=== PATIENT | female | born 1960 | race Caucasian/White ===

== ENCOUNTER 2023-10-05 18:20 | Emergency (ER) | payer OTHER, SELFPAY ==
[2023-10-05] VITALS (16 sets, daily range): BP systolic 172–250; BP diastolic 98–156; PULSE 72–128; TEMP 36.9; O2SAT 96; BMI 36.6
--- NOTE | 2023-10-05 18:44 | CT_ITS ---
The [address] [address] Patient Name: YARY PACEONER MRN: [id number] date: 1960 Sex: F Assigned Patient Location: ER Current Patient Location: ER Accession/Order Number: [id number] Exam Date: 10/05/2023 19:38 Report Date: 10/05/2023 19:59 At the request of: COOPER MUNROE Procedure: CT abdomen pelvis wo con EXAM: CT scan of the abdomen and pelvis without contrast. Dose reduction technique used: Automated exposure control and/or adjustment of the mA and/or kV according to patient size and/or use of iterative reconstruction technique. 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 Bilateral parapelvic renal cysts. Colonic diverticulosis. Mixed lucent and sclerotic circumscribed lesion in the right femoral head is likely benign. No renal, ureteral or bladder calculi. No hydronephrosis. Normal appendix. No free fluid in the abdomen or pelvis. No free intraperitoneal air. No dilated or thickened loops of small bowel or colon. Liver, pancreas, spleen, bilateral kidneys, and bilateral adrenal glands are otherwise unremarkable within the limitations of noncontrast CT. No lymphadenopathy in the abdomen or pelvis. Remainder unremarkable. CT/CT abdomen pelvis wo con IMPRESSION: No acute abnormalities in the abdomen or pelvis. Electronically authenticated by: MARIELENA FORD Date: 10/05/2023 19:59
--- NOTE | 2023-10-05 18:46 | ECG_ITS ---
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
--- NOTE | 2023-10-05 18:51 | ED_ITS ---
HPI HPI - General Adult General Chief complaint: GI Bleed Stated complaint: RECTAL BLEEDING Time Seen by Provider: 10/05/23 18:40 History of Present Illness HPI narrative: Is a 63-year-old female who presents to the emergency department for rectal bleeding that she noticed just prior to arrival. She states she and her went to dinner, she was able to eat and drink with no difficulty and she has no abdominal pain, fevers, chills, nausea, vomiting or recent illness. She states she had a bowel movement and she states that it was runny like water and she noted red blood in her stool. She denies the symptoms previously. She has never had a colonoscopy. She states she has been taking ibuprofen regularly for tooth pain. She is noted to be hypertensive and tachycardic at initial interview. She states she did have a history of high blood pressure in the past but it improved so she stopped taking her blood pressure medication and does not regularly see a doctor. Related Data Previous Rx's ?Medication ?Instructions ?Recorded lisinopril 10 mg tablet 10 mg PO DAILY #20 tabs 10/05/23 Allergies Allergy/AdvReac Type Severity Reaction Status Date / Time No Known Drug Allergies Allergy Verified 10/05/23 18:26 Opioid HPI Opioid Management Most Recent Opioid Data: No Data to Display Review of Systems ROS Constitutional Denies: fever or chills Ears, nose, mouth, and throat Denies: throat pain or nasal congestion Respiratory Denies: shortness of breath Gastrointestinal Reports: blood in stool; Denies: abdominal pain, nausea or vomiting Musculoskeletal Denies: back pain Integumentary/Breast Denies: rash Hematologic/Lymphatic Denies: easy bruising or easy bleeding Exam Narrative Exam Narrative: Gen.: Awake, alert, in no distress Head: Normocephalic, atraumatic ENT: Moist mucous membranes Respiratory: No respiratory distress, lungs clear bilaterally Cardio: Tachycardia Gastrointestinal: Abdomen is soft, nondistended and nontender to palpation Rectal: Rectal exam performed with Alyssa Lee RN at bedside throughout the duration of the exam. 2 small external hemorrhoids noted with no thrombosis or active bleeding Extremities: Moves extremities equally Psych: Normal mood and affect Neuro: No focal neuro deficit Skin: Warm, dry, intact Constitutional Vital Signs, click to edit/add: Last Vital Signs Temp 98.4 F 10/05/23 18:26 Pulse 76 10/05/23 20:30 Resp 16 10/05/23 20:30 BP 172/98 H 10/05/23 20:23 Pulse Ox 96 10/05/23 19:13 O2 Del Method Room Air 10/05/23 19:12 Course Vital Signs Vital signs: Vital Signs Temperature 98.4 F 10/05/23 18:26 Pulse Rate 128 H 10/05/23 18:26 Respiratory Rate 20 10/05/23 18:26 Blood Pressure 240/120 H 10/05/23 18:26 Pulse Oximetry 96 10/05/23 18:26 Temperature 98.4 F 10/05/23 18:26 Pulse Rate 76 10/05/23 20:30 Respiratory Rate 16 10/05/23 20:30 Blood Pressure 172/98 H 10/05/23 20:23 Pulse Oximetry 96 10/05/23 19:13 Oxygen Delivery Method Room Air 10/05/23 19:12 Medical Decision Making MDM Narrative Medical decision making narrative: Patient was treated with IV fluids, labetalol and Vasotec with improvement of blood pressure to 182/124. Lab studies are otherwise stable, Hemoccult is positive but the patient has no active bleeding per rectum in the ER and CT has no evidence of acute process. Patient with no anemia, she does not take blood thinners. She has no focal medical complaints in the ER. She was given 10 mg of Additional IV labetalol prior to discharge for continued elevated diastolic blood pressure. She is started on lisinopril for home and strongly encouraged to follow-up with her PCP for blood pressure recheck as well as general surgery for colonoscopy if the rectal bleeding continues. She verbalizes understanding and is resting comfortably on reevaluation with no medical complaints. Return to the ER if symptoms change or worsen. Medical Records Medical records reviewed: Yes I reviewed the patient's medical records Lab Data Lab results reviewed: Yes I reviewed the patient's lab results Labs: Lab Results 10/05/23 10/05/23 Range/Units 18:43 18:50 WBC 7.5 (4.0-11.0) 10^3/uL RBC 4.36 (4.20-5.40) 10^6/uL Hgb 13.2 (12.0-16.0) g/dL Hct 42.0 (36.0-48.0) % MCV 96.3 (81.0-99.0) fL MCH 30.3 (26.7-34.0) pg MCHC 31.4 (29.9-35.2) g/dL RDW 12.7 (11.0-15.0) % Plt Count 296 (150-450) 10^3/uL MPV 10.8 (9.5-13.5) fL Neut % (Auto) 62.5 (43.0-75.0) % Lymph % (Auto) 24.5 (20.5-60.0) % Miller % (Auto) 6.0 (1.7-12.0) % Eos % (Auto) 6.0 (0.9-7.0) % Baso % (Auto) 0.7 (0.2-2.0) % Neut # (Auto) 4.7 (1.4-6.5) 10^3/uL Lymph # (Auto) 1.8 (1.2-3.8) 10^3/uL Miller # (Auto) 0.5 (0.3-0.8) 10^3/uL Eos # (Auto) 0.5 (0.0-0.7) 10^3/uL Baso # (Auto) 0.1 (0.0-0.1) 10^3/uL Abs Immat Gran (auto) 0.02 (0.00-0.03) 10^3/uL Imm/Tot Granulo (auto) 0.3 (0.0-0.5) % Sodium 143 (136-145) mmol/L Potassium 3.7 (3.5-5.1) mmol/L Chloride 107 (98-107) mmol/L Carbon Dioxide 28.3 (21.0-32.0) mmol/L Anion Gap 11.4 BUN 23.0 H (7.0-18.0) mg/dL Creatinine 1.44 H (0.55-1.02) mg/dL Est GFR ( Amer) 45 L (>=60) Est GFR (Non-Af Amer) 37 L (>=60) BUN/Creatinine Ratio 16.0 Glucose 120 H (74-106) mg/dL Lactate 1.4 (0.4-2.0) mmol/L Calcium 9.5 (8.5-10.1) mg/dL Total Bilirubin 0.3 (0.2-1.0) mg/dL AST 10 L (15-37) U/L ALT 17 (14-59) U/L Alkaline Phosphatase 119 H (46-116) U/L Total Protein 6.9 (6.4-8.2) g/dL Albumin 3.6 (3.4-5.0) g/dL Globulin 3.3 g/dL Albumin/Globulin Ratio 1.1 Stool Occult Blood Positive A Imaging Data CT scan - abdomen: Attestation: I have reviewed the pertinent imaging results. Radiologist's impression: ITS Impressions Abdomen/Pelvis CT 10/05/23 18:44 IMPRESSION: No acute abnormalities in the abdomen or pelvis. Electronically authenticated by: MARIELENA FORD Date: 10/05/2023 19:59 ECG Data Attestation: I personally reviewed and interpreted this ECG as follows: (Normal sinus rhythm at a rate of 99, no acute ST elevation with moderate ST depression globally, no ectopy. EKG reviewed by attending physician) Discharge Plan Discharge Stand Alone Forms: Portal Instructions Chief Complaint: GI Bleed Clinical Impression: Rectal bleeding, Hypertension Patient Disposition: Home, Self-Care Time of Disposition Decision: 20:10 Condition: Good Prescriptions / Home Meds: New lisinopril 10 mg tablet 10 mg PO DAILY Qty: 20 0RF Print Language: Greenlandic Instructions: Rectal Bleeding (ED), Hypertension (ED) Referrals: DEBRA SANFORD [Primary Care Provider] - 1 week Rhett Muniz DO [Physician] - 1 week Eran Allen MD [Physician] - 1 week Eran Carvajal MD [Physician] - 1 week Discharge Date/Time: 10/05/23 20:33
[2023-10-05 18:58] LABS: Basophils Absolute Auto 0.1 10^3/uL (0.0-0.1); Basophils Percent Auto 0.7 % (0.2-2.0); Eosinophils Absolute Auto 0.5 10^3/uL (0.0-0.7); Hemoglobin 13.2 g/dL (12.0-16.0); Immature Granulocytes Abs Auto 0.02 10^3/uL (0.00-0.03); Immature Granulocytes Pct Auto 0.3 % (0.0-0.5); Lymphocytes Absolute Auto 1.8 10^3/uL (1.2-3.8); Lymphocytes Percent Auto 24.5 % (20.5-60.0); Mean Corpuscular HGB Conc 31.4 g/dL (29.9-35.2); Mean Corpuscular Hemoglobin 30.3 pg (26.7-34.0); Mean Corpuscular Volume 96.3 fL (81.0-99.0); Mean Platelet Volume 10.8 fL (9.5-13.5); Monocytes Absolute Auto 0.5 10^3/uL (0.3-0.8); Neutrophils Absolute Auto 4.7 10^3/uL (1.4-6.5); Neutrophils Percent Auto 62.5 % (43.0-75.0); Platelet Count 296 10^3/uL (150-450); Red Blood Count 4.36 10^6/uL (4.20-5.40); Red Cell Distribution Width 12.7 % (11.0-15.0); White Blood Count 7.5 10^3/uL (4.0-11.0)
[2023-10-05 18:59] LABS: Occult Blood Positive
[2023-10-05 19:13] LABS: Alanine Aminotransferase 17 U/L (14-59); Albumin Globulin Ratio 1.1; Albumin Level 3.6 g/dL (3.4-5.0); Alkaline Phosphatase 119 U/L (46-116); Anion Gap 11.4; Aspartate Amino Transferase 10 U/L (15-37); Bilirubin Total 0.3 mg/dL (0.2-1.0); Calcium 9.5 mg/dL (8.5-10.1); Carbon Dioxide 28.3 mmol/L (21.0-32.0); Chloride 107 mmol/L (98-107); Estimated GFR (African America 45 (>=60); Estimated GFR (Non-African Ame 37 (>=60); Globulin 3.3 g/dL; Glucose 120 mg/dL (74-106); Potassium 3.7 mmol/L (3.5-5.1); Sodium 143 mmol/L (136-145); Total Protein 6.9 g/dL (6.4-8.2)
[2023-10-05 19:16] LABS: Lactate/Lactic Acid 1.4 mmol/L (0.4-2.0)
[2023-10-05] MEDS: 0.9 % SODIUM CHLORIDE 1,000 ML 999 ML IV (19:33)
[2023-10-05] MEDS: ENALAPRILAT DIHYDRATE 1.25 MG/ML VIAL IV (19:34)
[2023-10-05] MEDS: LABETALOL HCL 20 MG/4 ML SYRINGE IVP (19:34)
== END 2023-10-05 20:33 | disposition home or self-care (01) ==
PROVIDERS: Physician Assistant; Emergency Provider Internal Medicine; PCP Internal Medicine
DX: K62.5 Hemorrhage of anus and rectum (principal); I10 Essential (primary) hypertension
CPT/HCPCS: 36415; 74176; 80053; 83605; 85025; 93005; 96374; 96375; 99285; G0328